=== PATIENT | female | born 1945 | race African-American/Black ===

== ENCOUNTER 2020-07-20 12:00 | Emergency (ER) | payer MEDICARE ==
[~2020-07-20] VITALS: Ht 160 cm; Wt 67.5 kg
[~2020-07-20 12:00] MED LIST: AMLO10TA80 PO; FURO-151 PO; KV10 PO
[2020-07-20 12:11] VITALS: BP 131/86
[2020-07-20] MEDS ORDERED: COLCHICINE 0.6MG TABLET PO ONE (12:45)
[2020-07-20] MEDS ORDERED: OXYCODONE HCL 5MG TABLET PO ONE (12:45)
[2020-07-20] MEDS ORDERED: COLCHICINE 0.6MG TABLET PO SCH (13:00)
[2020-07-20] MEDS ORDERED: OXYCODONE HCL 5MG TABLET PO SCH (13:00)
== END 2020-07-20 13:39 | disposition home or self-care (01) ==
LOC: ER 12:00
DX: M10.9 Gout, unspecified (principal); I11.0 Hypertensive heart disease with heart failure; I50.9 Heart failure, unspecified; E78.00 Pure hypercholesterolemia, unspecified; Z76.0 Encounter for issue of repeat prescription
CPT/HCPCS: 99283

== ENCOUNTER 2020-09-08 11:02 | Emergency (ER) | payer MEDICARE ==
[~2020-09-08] VITALS: Ht 160 cm; Wt 68.0 kg
[2020-09-08] MEDS ORDERED: ONDANSETRON HCL 4MG/2ML INJ IV STA (11:50)
[2020-09-08] MEDS ORDERED: MAGNESIUM CITRATE 300ML SOLUTION PO ONE (12:00)
[2020-09-08] MEDS ORDERED: MORPHINE SULFATE 4 MG/ML CPJ (NOT FOR IM USE) IV ONE (12:00)
[2020-09-08] MEDS ORDERED: LACTULOSE 20G/30ML UDC PO ONE (12:00)
[2020-09-08 13:38] LABS: BG BASE EXCESS -0.2 mmol/L (-2.0-2.0); BG CARBOXYHEMOGLOBIN 2.6 % (0.5-1.5); BG DEOXYHEMOGLOBIN 4.1 % (0.0-5.0); BG FRACTION INSPIRED OXYGEN 28; BG HCO3 ACT 25.3 mmol/L (22.0-26.0); BG METHEMOGLOBIN 0.2 % (0.0-1.5); BG OXYGEN SATURATION 95.8 % (92.0-98.5); BG OXYHEMOGLOBIN 93.1 % (94.0-97.0); BG PCO2 44.6 mmHg (35.0-45.0); BG PH 7.372 (7.350-7.450); BG PO2 81.2 mmHg (75.0-100.0); BG SAMPLE SITE LEFT RADIAL; BG TOTAL HEMOGLOBIN 14.4 g/dL (12.0-18.0); BG VENT MODE NASAL CANNULA
[2020-09-08 13:59] LABS: CHLORIDE 109 mEq/L (98-107)
[2020-09-08 14:03] LABS: BASOPHILS % 1.1 % (0.0-2.0); EOSINOPHILS % 2.5 % (0.0-5.0); HEMATOCRIT. 43.5 % (36.0-48.0); HEMOGLOBIN. 14.4 g/dL (12.0-16.0); LYMPHOCYTES % 14.6 % (20.0-50.0); MEAN CORPUSCULAR HEMOGLOBIN 29.8 pg (28.0-32.0); MEAN CORPUSCULAR VOLUME 90.4 fL (81.0-99.0); MONOCYTES % 9.8 % (2.0-8.0); RED BLOOD CELL COUNT 4.81 mill/uL (4.2-5.4)
[2020-09-08] MEDS ORDERED: LEVOFLOXACIN 750MG PREMIX 150 ML IV ONE (14:15)
[2020-09-08 14:36] LABS: PLATELET 148 x1000/uL (130-400)
[2020-09-08] MEDS ORDERED: ONDANSETRON HCL 4MG/2ML INJ IV ONE (16:15)
[2020-09-08 17:30] VITALS: BP 151/101
== END 2020-09-08 18:50 | disposition home or self-care (01) ==
LOC: ER 11:02
DX: M10.9 Gout, unspecified (principal); J18.9 Pneumonia, unspecified organism; I11.0 Hypertensive heart disease with heart failure; I50.9 Heart failure, unspecified; R09.02 Hypoxemia; E78.00 Pure hypercholesterolemia, unspecified
CPT/HCPCS: 36415; 36600; 71045; 80053; 82375; 82805; 85025; 93005; 96374; 96375; 96376; 99283; J1956; J2270; J2405; 99285